=== PATIENT | male | born 1970 | race Caucasian/White ===

== ENCOUNTER 2016-07-17 08:47 | Inpatient (IN) | payer BC ==
[2016-07-11 21:28] LABS: HEMATOCRIT 42.4 % (40.0-51.0); HEMOGLOBIN 14.8 g/dL (13.6-17.8)
[2016-07-11 21:40] LABS: BUN (BLOOD UREA NITROGEN) 17 MG/DL (6-23); CHLORIDE, SERUM 102 MMOL/L (96-112); CO2 (CARBON DIOXIDE) 22 MMOL/L (24-34); CREATININE 1.19 MG/DL (0.70-1.30); GFR AFRICAN AMERICAN 86 ML/MIN (>=60); GFR NON AFRICAN AMERICAN 74 ML/MIN (>=60); POTASSIUM, SERUM 4.4 MMOL/L (3.5-5.3); SODIUM, SERUM 136 MMOL/L (135-148)
[2016-07-11 21:41] LABS: GLUCOSE, SERUM 264 MG/DL (60-99)
[2016-07-11 21:42] LABS: CALCIUM, SERUM 9.6 MG/DL (8.5-10.4)
--- NOTE | ~2016-07-17 | OP ---
Record Of Operation [facility] [address] [place]. [address] NAME: KAYLI YA : 74 STATUS : ADM IN PAT#: [id number] AGE: 45 ADM/REG DATE : 07/17/16 MR#: [id number] REPORT SERV DATE: 07/18/16 DICTATED BY: DARRYL SAWYER II DATE: 07/18/16 REPORT STATUS : Draft TRANSCRIBED BY: MODL DATE: 07/18/16 DATE OF PROCEDURE: 07/17/2016 PREOPERATIVE DIAGNOSES: 1. Recurrent HNP, L5-S1. 2. Severe facet degeneration, L5-S1. 3. Recurrent left lower extremity radiculopathy. POSTOPERATIVE DIAGNOSES: 1. Recurrent HNP, L5-S1. 2. Severe facet degeneration, L5-S1. 3. Recurrent left lower extremity radiculopathy. PROCEDURE: 1. Revision facetectomy, L5-S1. 2. Interbody arthrodesis, L5-S1. 3. Application of prosthetic device, L5-S1. 4. Posterolateral arthrodesis L5-S1. 5. Posterior nonsegmental instrumentation, L5-S1. 6. Use of the microscope and stereotactic spinal imaging. 7. Use of local autograft, allograft substitute, and bone morphogenic protein. SURGEON: Darryl Sawyer M.D. FLUIDS: 1500 mL LR. ESTIMATED BLOOD LOSS: 75 mL. DRAINS: One drain. COMPLICATIONS: No complications. IMPLANTS: Alphatec. PREOPERATIVE HISTORY: This is a very friendly 45-year-old gentleman, who did well following his initial surgery a year ago. Unfortunately, he has had a recurrence of his disk herniation, which is significant in size. Also, his facet appears to be significantly degenerative bilaterally, but especially on the left with significant gapping. We discussed the pros and cons of performing a revision microdiskectomy versus the facetectomy and fusion. He did have some back pain, but was predominantly bothered by the leg pain. However, I did not feel confident that a decompression alone would adequately allow a significant improvement in the radiculopathy. Specifically, I felt that I was going to have to remove additional facet, and already there appeared to have been a fairly generous decompression done previously. I felt that ultimately I would have decompressed and removed likely more than 75-80% of the facet joint, and additionally the facet itself again overall did not appear very healthy and had significant gapping. Without the fusion, I felt he Record Of Operation [place] [id number] [facility] [place]. [address] NAME: KAYLI YA : 74 STATUS : ADM IN PAT#: [id number] AGE: 45 ADM/REG DATE : 07/17/16 MR#: [id number] REPORT SERV DATE: 07/18/16 DICTATED BY: DARRYL SAWYER II DATE: 07/18/16 REPORT STATUS : Draft TRANSCRIBED BY: MODFabiano DATE: 07/18/16 would likely have instability of the facet and have recurrent back and leg pain. I discussed with him and his extensively that I was concerned about his diabetes. Although he had done well a year ago with the surgery in the presence of diabetes, I was very adamant that we get his diabetes under better control. I postoperatively will have a hospitalist help marriage counselor him. I suspect he will need to go on some type of insulin most likely given his blood sugars and his hemoglobin A1c. I discussed with him and his that he is at increased risk for infection unfortunately. We discussed the option of cancelling the surgery and delaying it for 4-6 months while he aggressively reduced his hemoglobin A1c; however, he was not in favor of this as his pain was significant. DESCRIPTION OF PROCEDURE: After informed consent was obtained, the patient was brought to the operating room at his request, general anesthesia achieved, he was placed in prone position, and the back was prepped and draped in a sterile fashion. The iliac crest pin was placed on the right, and the intraoperative CT scan completed and stereotactic guidance used throughout the case. Next, the minimally invasive incision was performed on the left at L5-S1 and minimally invasive quadrant retractor was placed followed by use of the microscope. The sacral ala and the transverse process of L5 were dissected upon. The medial to lateral blades placed. The facet was identified, and as seen on the MRI, there was significant gapping noted following removal of the capsule. There appeared to be abnormal motion at this facet level from the degeneration. At this point, the pars was now removed with a high-speed bur, and the pedicle to pedicle decompression achieved with the high-speed bur, the Kerrison rongeurs, and the curettes. There was a significant amount of scarring of the residual ligamentum flavum to the dura, likely diabetes related. We were able to remove a portion of this, but overall following the facetectomy, we were able to note that the S1 nerve root appeared much more free following removal of the facet. At this point, we then worked under the undersurface of the S1 nerve root along its anterior aspect, and we were able to dissect the scar from the nerve root off the disk and the disk space itself. There was a large recurrent herniation. We were able to now gently retract the S1 nerve root. Next, the diskectomy was completed following removal of the additional fragment. The endplates were now prepared with the curettes, the candi, and the pituitary rongeurs. We were able to ultimately remove a generous amount of disk and identify punctate bleeding bone on both endplates. The area was now irrigated. Next, the local autograft and a very small amount of bone morphogenic protein placed into the anterior disk space. The prosthetic device was then trialed and chosen and placed at L5 S1. Excellent fit was obtained. Next, the stereotactic guidance was used for placement of bilateral L5-S1 pedicle screws. A repeat CT scan confirmed acceptable placement of the implants. The rods were then well Record Of Operation [address] [place]. [address] NAME: KAYLI YA : 74 STATUS : ADM IN PAT#: [id number] AGE: 45 ADM/REG DATE : 07/17/16 MR#: [id number] REPORT SERV DATE: 07/18/16 DICTATED BY: DARRYL SAWYER II DATE: 07/18/16 REPORT STATUS : Draft TRANSCRIBED BY: MILAGRO DATE: 07/18/16 assembled and final tightening performed. Next, the decortication was performed of the sacral ala and the L5 transverse process. Local autograft, allograft substitute, and bone morphogenic protein were placed along the gutter. A deep drain was placed followed by standard closure, and the patient was then extubated and transferred to PACU in stable condition. NINA/MILAGRO Darryl Sawyer II, M.D. / [id number] CC: Dr. Ed Noguera
--- NOTE | ~2016-07-17 | DS ---
Discharge Summary [facility] [address] [place]. [address] NAME: KAYLI YA : 74 STATUS : DIS IN PAT#: [id number] AGE: 45 ADM/REG DATE : 07/17/16 MR#: [id number] REPORT SERV DATE: 07/30/16 DICTATED BY: DARRYL SAWYER II DATE: 07/29/16 REPORT STATUS : Draft TRANSCRIBED BY: MODL DATE: 07/29/16 Data Collection from hospitalization DISCHARGE DIAGNOSES: 1. Recurrent herniated nucleus pulposus, L5-S1. 2. Severe facet degeneration, L5-S1. 3. Recurrent left lower extremity radiculopathy. 4. Diabetes. 5. Hypertension. 6. Hyperlipidemia. 7. Obstructive sleep apnea. 8. Obesity. CONSULTATION: Dr. Jason Perez. PROCEDURES PERFORMED: Revision facetectomy, L5-S1; interbody arthrodesis, L5-S1; application of prosthetic device, L5-S1; posterolateral arthrodesis, L5-S1; posterior nonsegmental instrumentation, L5-S1; use of microscope and stereotactic spinal imaging; use of local autograft, allograft substitute, and bone morphogenetic protein, 07/17/2016. PATHOLOGY: Bone and soft tissue, lumbar spine-bone, skeletal muscle, and fibrocartilage. No significant microscopic abnormality. DISCHARGE MEDICATIONS: Lipitor 40 mg at bedtime, vitamin B12 1000 mcg every morning, Valium 5 mg four times a day as needed, fenofibrate 160 mg at bedtime, glucosamine one tablet every morning, Avapro 75 mg every morning, Claritin 10 mg every morning, Glucophage 1000 mg with breakfast and supper, MS Contin 30 mg every 12 hours, multivitamins one tablet daily, Zofran 4 mg every six hours as needed, Percocet 5/325 one to two tablets every four to six hours as needed, Actos 30 mg every morning, Lyrica 100 mg twice a day. CONDITION AT DISCHARGE: Stable. DISPOSITION: The patient was discharged home on an 1800-calorie diabetic diet with activities as instructed. He would follow up with me, 08/14/2016. HOSPITAL COURSE: This is a 45-year-old man, who had had complaints of low back pain as well as radiculopathy and intervertebral disk degeneration. He had had epidural injection and reported 40% improvement since the injection and was requesting another. The patient has recurrent herniated nucleus pulposus, L5-S1 and severe facet degeneration, L5-S1. He has recurrent left lower extremity radiculopathy. Treatment options were discussed and it was elected to proceed with surgical intervention. He was admitted to the hospital at this time for further evaluation and treatment. Upon admission, he was taken to the operating room, where he underwent the above-mentioned procedure. He tolerated this well and there were no complications. Postoperatively, he was seen by Dr. Jason Perez regarding uncontrolled diabetes. The patient had significant pain and was requiring BOOK SHELVER analgesia. He had no complaints of radicular pain or pain down his legs. He has chronic numbness in his feet from his diabetes. His blood Discharge Summary [address] [place]. [address] NAME: KAYLI YA : 74 STATUS : DIS IN PAT#: [id number] AGE: 45 ADM/REG DATE : 07/17/16 MR#: [id number] REPORT SERV DATE: 07/30/16 DICTATED BY: DARRYL SAWYER II DATE: 07/29/16 REPORT STATUS : Draft TRANSCRIBED BY: MILAGRO DATE: 07/29/16 sugars had been chronically high. His hemoglobin A1c last year was satisfactory. He denied any visual or renal complications of diabetes. Creatinine level was 1.2. The patient had received intraoperative Decadron, which had exacerbated the blood glucose levels. We were going to continue Actos and metformin at this time. Insulin would be given. We anticipated the Decadron to wear off over the next day or two, and he would be transitioned to oral exclusively. Hemoglobin A1c was going to be checked. Blood pressure was currently satisfactory. Avapro was continued as well as Lipitor and fenofibrate. On postop day #1, he was evaluated by Physical Therapy. He was eating very little. He had no chest pain. He had an episode the previous evening that was midsternal that lasted a few minutes. He denied any associated symptoms. He did have some nausea at this time. His oral diabetic medications were held. Hemoglobin A1c was 10.6. Insulin was adjusted. Serial troponins were being checked. On 07/19/2016, lower extremity radiculopathy was improving. He did complain of nausea with Dilaudid BOOK SHELVER. The chest pain was felt to actually have been acid reflux. We encouraged him to mobilize. He was beginning to feel better. Discharge planning was performed. He had no new complaints. On 07/21/2016, he was alert and cooperative. Long-acting insulin was going to begin as an outpatient. Discharge instructions were given. Due to his improved and stable condition, he was discharged home with the above-stated instructions. Information collected by: Juana Horton I submit the above information as my discharge summary. TG/MODL Darryl Sawyer II, M.D. / [id number] CC: Matthew Tee II, SAMUEL J
--- NOTE | ~2016-07-17 | CN ---
Consultation Report [facility] [address] [place]. [address] NAME: KAYLI YA : 74 STATUS : ADM IN PAT#: [id number] AGE: 45 ADM/REG DATE : 07/17/16 MR#: [id number] REPORT SERV DATE: 07/17/16 DICTATED BY: ANN MARIE DIAZ DATE: 07/17/16 REPORT STATUS : Draft TRANSCRIBED BY: MODL DATE: 07/17/16 CONSULTATION DATE OF CONSULTATION: 07/17/2016 REASON FOR CONSULTATION: Uncontrolled diabetes. HISTORY OF PRESENT ILLNESS: Mr. Ya is a 45-year-old male with type 2 diabetes, hypertension, status post microdiskectomy last year versus a herniated disk, who has had chronic radicular pain since then and was admitted for definitive therapy with a facetectomy, lumbar fusion, and cage placement after instrumentation by Dr. Sawyer. He had a four-hour operation under generalized anesthetic. Estimated blood loss not listed, but vital signs were stable throughout the operation, transferred to the floor in satisfactory condition. He has significant pain requiring DEVELOPMENT CHEMIST analgesia in his lower spine, but no more radicular pain or pain down his leg. The patient has chronic numbness in his feet from his diabetes and his sugar has been chronically high, but A1c last year was satisfactory. He denies any visual or renal complications of diabetes. No cardiovascular or pulmonary complaints. He has had no nausea or vomiting postoperatively. He has tolerated clears. Mild headache is noted. REVIEW OF SYSTEMS: Remainder of review of systems is negative. PAST MEDICAL HISTORY: As mentioned above. MEDICATIONS: Lipitor, B12, Avapro, metformin, multivitamin, Actos, Lyrica, fenofibrate, and Byetta. ALLERGIES: PENICILLIN. FAMILY HISTORY: Noncontributory. SOCIAL HISTORY: The patient denies tobacco, alcohol, or drugs. PHYSICAL EXAMINATION: VITAL SIGNS: On presentation, blood pressure 130/80, pulse 105, respirations 16, afebrile, saturation is 94%. GENERAL: Awake, alert, and oriented x3, in no apparent distress. HEENT: Pupils are equal and reactive to light. Extraocular movements are intact. No cranial nerve deficits. Moist mucous membranes. Normal oropharynx. NECK: Revealed no jugular distention, carotid bruits, lymphadenopathy, or goiter. CARDIAC: Regular rate and rhythm. No murmurs, rubs, or rubs. LUNGS: Clear to auscultation bilaterally with good excursion. ABDOMEN: Nondistended and nontender. Bowel sounds normoactive, but mildly obese. Consultation Report [facility] [address] [place] [address] NAME: KAYLI YA : 74 STATUS : ADM IN PAT#: [id number] AGE: 45 ADM/REG DATE : 07/17/16 MR#: [id number] REPORT SERV DATE: 07/17/16 DICTATED BY: ANN MARIE DIAZ DATE: 07/17/16 REPORT STATUS : Draft TRANSCRIBED BY: MILAGRO DATE: 07/17/16 BACK: Could not be examined due to pain with movement. However, GUERO drain showed minimal bloody drainage. EXTREMITIES: No cyanosis, clubbing, or edema. Good pulses and capillary refill. He had normal sensory and motor function in all four extremities. He had a recent ingrown toenail removal, which has some mild erythema, but he had normal sensory function and grossly normal motor function x4. SKIN: Warm and dry. PSYCHIATRIC: He is appropriate. LABORATORY EVALUATION: Sodium 136, potassium 4.4, chloride 103, bicarb 22, BUN 17, creatinine 1.2, glucose 264. Glucoses have ranged from 166 to 233 here. ASSESSMENT AND PLAN: 1. Status post L-spine per Dr. Sawyer. DEVELOPMENT CHEMIST will continue for now. Neurological monitoring will be necessary while he is here. 2. Type 2 diabetes exacerbated by intraoperative Decadron. There is no contraindication to the patient continuing Actos and metformin at this time. We will go ahead and continue that. However, insulin will be given. We do not have Byetta on formulary. We anticipate the Decadron will wear off over the next day or two and he will be able to be transitioned to oral exclusively. A1c, however, will be investigated and he may need augmentation of his regimen based on those results. 3. Hypertension. Blood pressure is currently satisfactory. Continue Avapro. 4. Hyperlipidemia. Continue Lipitor and fenofibrate. We appreciate the opportunity to assist in the care of this patient. We will follow along with you. NUHA/MILAGRO Ann Marie Diaz M.D. / [id number] CC: Matthew Tee II, Dr.
[~2016-07-17 08:47] MED LIST: ACTOS30 PO; AVAPRO75 PO; CLARIT10 PO; CYANO1000T PO; GLUCOPHAGE1000 MG PO; GLUCOSAMINEPO PO; LIPITOR40 PO; LOFIB160 PO; LYRICA100 MG PO; METFORMIN; MULTIPLE VIT PO; PERCOCET1 TA4 PO
[2016-07-18 06:09] LABS: BASOPHILS 0.1 %; BASOPHILS ABSOLUTE 0.01 10/3/uL (0.0-0.16); EOSINOPHILS 0.1 %; EOSINOPHILS ABSOLUTE 0.01 10/3/uL (0.0-0.53); HEMOGLOBIN 12.8 g/dL (13.6-17.8); IMMATURE GRANULOCYTES 0.2 %; IMMATURE GRANULOCYTES ABSOLUTE 0.03 10/3/uL (0.0-0.11); LYMPHOCYTES 7.1 %; LYMPHOCYTES ABSOLUTE 0.91 10/3/uL (0.67-4.30); MEAN CORPUS HGB CONC 34.8 g/dL (32.0-36.0); MEAN CORPUSCULAR HEMOGLOB 29.2 pg (26.0-34.0); MEAN CORPUSCULAR VOLUME 83.8 fL (80-100); MEAN PLATELET VOLUME 9.8 fL (9.2-13.0); MONOCYTES ABSOLUTE 0.64 10/3/uL (0.21-1.20); NEUTROPHILS 87.5 %; NEUTROPHILS ABSOLUTE 11.16 10/3/uL (2.02-8.40); PLATELET COUNT 336 10/3/uL (150-400); RBC DISTRIBUTION WIDTH 12.6 % (12.0-16.0); RED CELL COUNT 4.39 10/6/uL (4.7-6.1); WHITE BLOOD CELLS 12.8 10/3/uL (4.5-10.5)
[2016-07-18 06:18] LABS: BUN (BLOOD UREA NITROGEN) 14 MG/DL (6-23); CHLORIDE, SERUM 96 MMOL/L (96-112); CO2 (CARBON DIOXIDE) 25 MMOL/L (24-34); CREATININE 1.09 MG/DL (0.70-1.30); GFR AFRICAN AMERICAN 96 ML/MIN (>=60); GFR NON AFRICAN AMERICAN 83 ML/MIN (>=60); GLUCOSE, SERUM 268 MG/DL (60-99); SODIUM, SERUM 131 MMOL/L (135-148)
[2016-07-18 06:20] LABS: CALCIUM, SERUM 8.2 MG/DL (8.5-10.4); HEMATOCRIT 36.8 % (40.0-51.0); MANUAL DIFF NO %
[2016-07-18 12:52] LABS: TROPONIN I <0.02 NG/ML (<0.05)
[2016-07-19 06:23] LABS: BASOPHILS 0.4 %; BASOPHILS ABSOLUTE 0.03 10/3/uL (0.0-0.16); EOSINOPHILS 0.7 %; EOSINOPHILS ABSOLUTE 0.06 10/3/uL (0.0-0.53); HEMOGLOBIN 13.1 g/dL (13.6-17.8); IMMATURE GRANULOCYTES 0.4 %; IMMATURE GRANULOCYTES ABSOLUTE 0.03 10/3/uL (0.0-0.11); LYMPHOCYTES 22.4 %; LYMPHOCYTES ABSOLUTE 1.84 10/3/uL (0.67-4.30); MEAN CORPUS HGB CONC 33.6 g/dL (32.0-36.0); MEAN CORPUSCULAR HEMOGLOB 28.8 pg (26.0-34.0); MEAN CORPUSCULAR VOLUME 85.7 fL (80-100); MEAN PLATELET VOLUME 9.9 fL (9.2-13.0); MONOCYTES ABSOLUTE 0.74 10/3/uL (0.21-1.20); NEUTROPHILS 67.1 %; NEUTROPHILS ABSOLUTE 5.51 10/3/uL (2.02-8.40); PLATELET COUNT 295 10/3/uL (150-400); RED CELL COUNT 4.55 10/6/uL (4.7-6.1); WHITE BLOOD CELLS 8.2 10/3/uL (4.5-10.5)
[2016-07-19 06:27] LABS: MANUAL DIFF NO %
[2016-07-19 06:34] LABS: BUN (BLOOD UREA NITROGEN) 15 MG/DL (6-23); CALCIUM, SERUM 8.1 MG/DL (8.5-10.4); CHLORIDE, SERUM 100 MMOL/L (96-112); CO2 (CARBON DIOXIDE) 27 MMOL/L (24-34); CREATININE 1.17 MG/DL (0.70-1.30); GFR AFRICAN AMERICAN 88 ML/MIN (>=60); GFR NON AFRICAN AMERICAN 76 ML/MIN (>=60); GLUCOSE, SERUM 259 MG/DL (60-99); POTASSIUM, SERUM 3.9 MMOL/L (3.5-5.3); SODIUM, SERUM 135 MMOL/L (135-148)
[2016-07-20] MEDS ORDERED: PCET PO (08:02)
[2016-07-20] MEDS ORDERED: MSCONTIN PO (08:02)
[2016-07-20] MEDS ORDERED: ZOFRAN4 PO (08:03)
[2016-07-20] MEDS ORDERED: V5 PO (08:03)
== END 2016-07-21 11:02 | disposition home or self-care (01) | DRG 460 ==
LOC: SDC/OF 08:47 → 3SO 17:35
PROVIDERS: Internal Medicine; Nurse Practitioner; Orthopaedic Surgery
PROC: 0SG30AJ Fusion of Lumbosacral Joint with Interbody Fusion Device, Posterior Approach, Anterior Column, Open Approach (ICD-10-PCS; principal; 2016-07-17 10:45)
PROC: 4A11X4G Monitoring of Peripheral Nervous Electrical Activity, Intraoperative, External Approach (ICD-10-PCS; 2016-07-17 10:45)
DX: M51.17 Intervertebral disc disorders with radiculopathy, lumbosacral region (principal); E11.65 Type 2 diabetes mellitus with hyperglycemia; I10 Essential (primary) hypertension; E78.5 Hyperlipidemia, unspecified
CPT/HCPCS: 36415; 80048; 82962; 83036; 83735; 84484; 85014; 85018; 85025; 87641; 88304; 88311; 93005; 97116-GP; 97161-GP; A9270-GY; C1713; C1768; J0360; J1170; J1580; J2250; J2405; J2710; J3010; J3370

== ENCOUNTER 2016-08-15 18:36 | Inpatient (IN) | payer BC ==
--- NOTE | ~2016-08-15 | HP ---
History And Physical [facility] [address] [place]. [address] NAME: KAYLI YA : 74 STATUS : ADM Thiago PAT#: [id number] AGE: 45 ADM/REG DATE : 08/15/16 MR#: [id number] REPORT SERV DATE: 08/16/16 DICTATED BY: DARRYL ORTIZ II DATE: 08/16/16 REPORT STATUS : Draft TRANSCRIBED BY: MODL DATE: 08/16/16 DATE OF ADMISSION: 08/15/2016 CHIEF COMPLAINT: Left lower extremity pain. HISTORY OF PRESENT ILLNESS: Very friendly gentleman who is admitted for severe radiculopathy secondary to a large lumbar seroma noted on MRI, which we were able to review on the day of admission. This is the reason for admission insofar as he is having severe radiculopathy and now MRI confirming a large seroma. The report indicates possibility of infection, although I find this unlikely given the fact his skin looks unremarkable and his incision is healed wonderfully without erythema or drainage. He is not having any fevers. PAST MEDICAL HISTORY: History of diabetes, hyperlipidemia, hypertension. ALLERGIES: PENICILLIN. MEDICATIONS: Ultram, Lyrica, Zanaflex, atorvastatin, metformin, Bydureon. PAST SURGICAL HISTORY: History of shoulder scope, microdiskectomy, and knee surgery with recent fusion. FAMILY HISTORY: Significant for diabetes. SOCIAL HISTORY: He works as an manufacturing electrician. He is and has two children. He is a former smoker. PHYSICAL EXAMINATION: GENERAL: Reveals a gentleman in mild distress secondary to pain. NECK: Supple. CHEST: Reveals no stridor on inspiration or expiration. CARDIOVASCULAR: Regular rate and rhythm and I palpate the radial pulse. MUSCULOSKELETAL: His gait is antalgic. His lumbar flexibility is diminished. His back reveals two well-healed incisions. There is absolutely no evidence of erythema or fluctuance. NEUROLOGICAL: He does have some mild persistent left lower extremity weakness in the extensor hallucis longus. IMAGING: Does show a large seroma underneath the fascia. MEDICAL DECISION MAKIN-year-old gentleman, status post fusion recently with large lumbar seroma and severe left lower extremity pain. His plan will be for evacuation of the seroma. If the fluid is suspicious of course, we will culture it. We will go ahead and hold antibiotics preoperatively. Pending the visual identification of the fluid. History And Physical [facility] [id number] [place]. [address] NAME: KAYLI YA : 74 STATUS : ADM Thiago PAT#: [id number] AGE: 45 ADM/REG DATE : 08/15/16 MR#: [id number] REPORT SERV DATE: 08/16/16 DICTATED BY: DARRYL ORTIZ II DATE: 08/16/16 REPORT STATUS : Draft TRANSCRIBED BY: MILAGRO DATE: 08/16/16 NINA/MILAGRO Darryl Ortiz II, M.D. / [id number] CC: Darryl Ortiz II, M.D.
--- NOTE | ~2016-08-15 | OP ---
Record Of [facility] [address] [place]. [address] NAME: KAYLI YA : 74 STATUS : ADM Thiago PAT#: [id number] AGE: 45 ADM/REG DATE : 08/15/16 MR#: [id number] REPORT SERV DATE: 08/16/16 DICTATED BY: DARRYL ORTIZ II DATE: 08/16/16 REPORT STATUS : Draft TRANSCRIBED BY: MODL DATE: 08/16/16 DATE OF PROCEDURE: 08/16/2016 PREOPERATIVE DIAGNOSES: Lumbar seroma. POSTOPERATIVE DIAGNOSIS: Lumbar seroma. PROCEDURE: 1. Evacuation of lumbar seroma. 2. Use of the microscope. SURGEON: Darryl Ortiz M.D. FLUIDS: 1100 mL LR. ESTIMATED BLOOD LOSS: 10 mL. DRAINS: One drain. COMPLICATIONS: none. CULTURES: None. ANTIBIOTICS: Vancomycin and gentamicin given. DETAILS OF THE PROCEDURE: The patient was brought to the operating room. After informed consent was obtained, he was placed in the prone position following general anesthesia induction. The back was prepped and draped in a sterile fashion. The left lumbar incision was re-incised. The subcutaneous tissues were identified. These were healthy and without evidence of infection or abnormal tissue. Next, the fascia was re-incised and the suture removed. At this point, we identified a very large amount of straw-colored fluid. There was absolutely no evidence of cloudy fluid or suspicious fluid. The microscope was now brought into place. Under microscopic visualization, the remainder of the seroma was evacuated from the epidural space. The previous hardware was identified and was found to be intact. The epidural space was identified. The L5 and S1 nerve roots found to be free of compression. The area was now irrigated followed by placement of a drain and closure of the fascia once again. We used a larger bore drain. I discussed with him preoperatively that one of the etiologies of the fluid collection could have been a malfunctioning drain. He did report the fact the drain did not seem to hold it suction very well and he reported a significant amount of drainage coming from around the drain during the hospitalization. I do recall this from memory, and I again suspect this was the source of the fluid collection. At this point, the patient was pending dressing application following standard closure and again, the patient was pending extubation and transfer. Record Of Operation [address] [address] NAME: KAYLI YA : 74 STATUS : ADM Thiago PAT#: [id number] AGE: 45 ADM/REG DATE : 08/15/16 MR#: [id number] REPORT SERV DATE: 08/16/16 DICTATED BY: DARRYL ORTIZ II DATE: 08/16/16 REPORT STATUS : Draft TRANSCRIBED BY: MILAGRO DATE: 08/16/16 NINA/MILAGRO Darryl Ortiz II, M.D. / [id number] CC: Darryl Ortiz II, M.D.
[~2016-08-15 18:36] MED LIST changes: +MSCONTIN PO; +PCET PO; +V5 PO; +ZOFRAN4 PO
[2016-08-15 19:08] LABS: BASOPHILS 0.5 %; BASOPHILS ABSOLUTE 0.03 10/3/uL (0.0-0.16); EOSINOPHILS 1.6 %; HEMATOCRIT 39.6 % (40.0-51.0); HEMOGLOBIN 13.9 g/dL (13.6-17.8); IMMATURE GRANULOCYTES 0.3 %; IMMATURE GRANULOCYTES ABSOLUTE 0.02 10/3/uL (0.0-0.11); LYMPHOCYTES 28.3 %; LYMPHOCYTES ABSOLUTE 1.79 10/3/uL (0.67-4.30); MANUAL DIFF NO %; MEAN CORPUS HGB CONC 35.1 g/dL (32.0-36.0); MEAN CORPUSCULAR HEMOGLOB 29.3 pg (26.0-34.0); MEAN CORPUSCULAR VOLUME 83.5 fL (80-100); MEAN PLATELET VOLUME 9.7 fL (9.2-13.0); MONOCYTES 7.9 %; NEUTROPHILS 61.4 %; NEUTROPHILS ABSOLUTE 3.88 10/3/uL (2.02-8.40); PLATELET COUNT 320 10/3/uL (150-400); RBC DISTRIBUTION WIDTH 12.7 % (12.0-16.0); RED CELL COUNT 4.74 10/6/uL (4.7-6.1); WHITE BLOOD CELLS 6.3 10/3/uL (4.5-10.5)
[2016-08-15] MEDS ORDERED: V5 PO (20:49)
[2016-08-15] MEDS ORDERED: MSCONTIN PO (20:49)
[2016-08-15] MEDS ORDERED: ACTOS30 PO (20:50)
[2016-08-15] MEDS ORDERED: PCET PO (20:50)
[2016-08-15] MEDS ORDERED: LYRICA150 MG PO (20:51)
[2016-08-15] MEDS ORDERED: LOFIBRA160 MG PO (20:51)
[2016-08-15] MEDS ORDERED: GLUCCHONDR PO (20:51)
[2016-08-15] MEDS ORDERED: BYDUREON2 MG SQ (20:51)
[2016-08-15] MEDS ORDERED: DSS PO (20:52)
[2016-08-15] MEDS ORDERED: MULTIVIT/MIN PO (20:52)
[2016-08-15] MEDS ORDERED: LIPITOR40 PO (20:52)
[2016-08-15] MEDS ORDERED: LANTUSCART SC (20:52)
[2016-08-15] MEDS ORDERED: SENTAB PO (20:52)
[2016-08-15] MEDS ORDERED: GLUCOPHAGE1000 MG PO (20:53)
[2016-08-15] MEDS ORDERED: CLARIT10 PO (20:53)
[2016-08-15] MEDS ORDERED: CYANO1000T PO (20:53)
[2016-08-15] MEDS ORDERED: MOBIC15 MG PO (20:53)
[2016-08-15] MEDS ORDERED: AVAPRO75 PO (20:53)
[2016-08-15] MEDS ORDERED: ZANAFLEX 4 MG TA4 MG PO (20:54)
[2016-08-19] MEDS ORDERED: ZOFRAN ODT4 MG PO (08:46)
[2016-08-19] MEDS ORDERED: ROXICODONE15 MG PO (08:47)
== END 2016-08-19 12:30 | disposition home or self-care (01) | DRG 983 ==
LOC: 3SO 18:36
PROVIDERS: Orthopaedic Surgery
PROC: 0S9000Z Drainage of Lumbar Vertebral Joint with Drainage Device, Open Approach (ICD-10-PCS; principal; 2016-08-15)
DX: M96.842 Postprocedural seroma of a musculoskeletal structure following a musculoskeletal system procedure (principal); I10 Essential (primary) hypertension; E78.5 Hyperlipidemia, unspecified; E11.9 Type 2 diabetes mellitus without complications; G47.33 Obstructive sleep apnea (adult) (pediatric)
CPT/HCPCS: 71100-RT; 82962; 85025; 85652; 86140; 97116-GP; 97161-GP; A9270-GY; J1580; J2250; J2270; J2405; J2550; J2710; J3010; J3370